=== PATIENT | female | born 2000 | race Caucasian/White ===

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

== ENCOUNTER 2024-06-17 12:20 | Emergency (ER) | payer MEDICAID ==
[~2024-06-17] VITALS: Ht 152.4 cm; Wt 159.0 kg
[~2024-06-17 12:20] MED LIST: CITA10TA99 PO
[2024-06-17 12:21] VITALS: TEMP 97.8
[2024-06-17] MEDS ORDERED: LAMO25TA36 PO (12:25)
[2024-06-17] MEDS ORDERED: QUET50TA93 PO (12:25)
[2024-06-17] MEDS ORDERED: SULF-261 PO (13:21)
[2024-06-17 14:03] VITALS: BP 144/96; PULSE 99; RESP 18; O2SAT 98
== END 2024-06-17 14:23 | disposition home or self-care (01) ==
LOC: EMS 12:20
DX: L03.032 Cellulitis of left toe (principal); L03.031 Cellulitis of right toe; F32.A Depression, unspecified; F20.9 Schizophrenia, unspecified; Z88.0 Allergy status to penicillin
CPT/HCPCS: 99283; Z7502